=== PATIENT | male | born 1995 | race Caucasian/White ===

== ENCOUNTER 2022-12-17 16:55 | Emergency (ER) | payer OTHER ==
[~2022-12-17] VITALS: Ht 182.9 cm; Wt 90.7 kg
[2022-12-17] MEDS ORDERED: CYCL5TAB PO ×2 (18:08→18:41)
[2022-12-17] MEDS ORDERED: IBUP-1955 PO ×2 (18:08→18:41)
[2022-12-17 18:16] VITALS: BP 129/66; TEMP 97.9; O2SAT 100
== END 2022-12-17 18:14 | disposition home or self-care (01) ==
LOC: ER 16:55
DX: R20.0 Anesthesia of skin (principal); Z79.899 Other long term (current) drug therapy